=== PATIENT | male | born 1985 | race Two or more races ===

== ENCOUNTER 2018-06-14 20:34 | Emergency (ER) | payer SELFPAY ==
[~2018-06-14] VITALS: Ht 175.3 cm; Wt 56.2 kg
[2018-06-14 20:58] VITALS: BP_SYST 124
[2018-06-14 23:15] VITALS: BP_SYST 120
== END 2018-06-14 23:15 | disposition home or self-care (01) ==
LOC: SED 20:34
DX: J02.8 Acute pharyngitis due to other specified organisms (principal); B96.89 Other specified bacterial agents as the cause of diseases classified elsewhere
CPT/HCPCS: 36415; 71045; 86710; 99284